=== PATIENT | female | born 1990 | race Caucasian/White ===

== ENCOUNTER 2023-07-12 13:29 | Outpatient (CLI) | payer OTHER, SELFPAY ==
[2023-07-12 14:59] VITALS: BP 165/84; PULSE 83; RESP 16; TEMP 36.9; O2SAT 98
== END 2023-07-12 16:19 | disposition home or self-care (01) ==
PROVIDERS: Visit Provider Family Medicine
DX: M72.2 Plantar fascial fibromatosis (principal)
CPT/HCPCS: 27605; 76942; J0665